=== PATIENT | male | born 1955 | race Caucasian/White ===

== ENCOUNTER 2017-06-09 18:28 | Emergency (ER) | payer BC ==
[2014-02-27 11:09] VITALS: BMI 26.5
[~2017-06-09 18:28] MED LIST: ASPIRIN325 MG PO; DIABETA1.25 MG PO; GLUCOPHAGE500 MG PO; HYDROCODONE-APA1 TAB PO; IMDUR30 MG PO; LISINOPRIL10 MG PO; PLENDIL5 MG PO; ZIAC 5-6.25 MG1 TAB PO
[2017-06-09 19:15] LABS: APPEARANCE CLEAR (CLEAR); BILIRUBIN NEGATIVE (NEGATIVE); COLOR YELLOW (YELLOW); GLUCOSE 1000 mg/dL (NEGATIVE); KETONE NEGATIVE (NEGATIVE); NITRITE NEGATIVE (NEGATIVE); PROTEIN NEGATIVE (NEGATIVE); UROBILINOGEN NORMAL (NORMAL)
== END 2017-06-09 19:35 | disposition home or self-care (01) ==
LOC: D.ER 18:28
PROVIDERS: Family Medicine
DX: M54.5 Low back pain (principal); E11.9 Type 2 diabetes mellitus without complications; I10 Essential (primary) hypertension; Z85.46 Personal history of malignant neoplasm of prostate; F17.200 Nicotine dependence, unspecified, uncomplicated